=== PATIENT | female | born 1950 | race Caucasian/White ===

== ENCOUNTER 2024-09-26 20:08 | Emergency (ER) | payer MEDICARE, SELFPAY ==
[2024-09-26 20:26] VITALS: BP 174/87; PULSE 84; RESP 17; TEMP 37.1; O2SAT 98; BMI 22.8
[2024-09-26 20:38] VITALS: BP 177/105; PULSE 85; O2SAT 95
--- NOTE | 2024-09-26 20:49 | ED.GENADULT ---
HPI - General Adult General Chief complaint: Dental/Oral Stated complaint: difficulty swallowing, neck pain Time Seen by Provider: 09/26/24 20:49 History of Present Illness HPI narrative: 74-year-old female past medical history of hypertension states that she was just at the dentist earlier today having a filling done, she states that she felt like she might be having an allergic reaction, states that she felt swelling and pain to her neck, this happened after she left the dentist office, states that she gave herself Benadryl states that she has some improved symptoms but did call her dentist and was told that she most likely had subcutaneous emphysema to the fact that the filling was deep according to her dentist, she was not given any directions about what to do next therefore decided come into the ED for further evaluation treatment. at time of evaluation patient well-appearing nontoxic no stridor no voice changes no trismus patient is tolerating secretions not complaining of any other symptoms at this time. Related Data Home Medications Medication Instructions Recorded Confirmed spironolactone 25 mg tablet 25 mg PO DAILY 09/26/24 09/26/24 Allergies Allergy/AdvReac Type Severity Reaction Status Date / Time SULFA Allergy Unknown RASH Uncoded 09/26/24 20:24 Review of Systems Review of Systems Narrative: General: Denies fever, chills, weight loss HEENT: Positive neck swelling/pain, Denies headache, eye drainage, eye irritation, head trauma, sore throat, voice change Cardiovascular: Denies any chest pain, palpitations, tachycardia Respiratory: Denies any shortness of breath, cough, wheeze, stridor GI/: Denies any abdominal pain, nausea, vomiting, diarrhea, bright red blood per rectum, melanotic stools, urinary frequency, urinary retention, dysuria, hematuria MSK: Denies any joint pain, muscle pains, swelling Skin: Denies any rashes, lesions, discoloration Neuro: Denies any headache, lightheadedness, dizziness, fainting, weakness Psych: Denies SI/HI Patient History Surgical History (Updated 09/14/17 @ 06:16 by Conversion Provider) History of spinal fusion Social History Smoking Status: Never smoker Smoking Status: Never smoker Exam Narrative Exam Narrative: General: Cooperative, well-developed, not in acute distress HEENT: Normocephalic, atraumatic, PERRLA, normal sclera, eyelids normal, Palpable crepitus to the right side of the neck, however patient is speaking full sentences protecting airway no voice changes no stridor no trismus uvula is midline Neck: Active full range of motion, atraumatic Chest: Normal to inspection, negative crepitus, no overlying erythema ecchymosis Respiratory: Normal respiratory effort, not in acute respiratory distress, clear to auscultation bilaterally negative cough, wheeze, tachypnea, rhonchi, rales Cardiology: Regular rate rhythm negative gallop, murmur, rubs GI/: No tenderness to palpation, soft, non rigid, normal to inspection, exam deferred MSK: Full active range of motion in all 4 extremities, atraumatic, no tenderness to palpation of any bony prominences Skin: No rashes or lesions noted Neuro: Alert awake oriented x3, moves all 4 extremities spontaneously, cranial nerves intact, able to answer all questions appropriately follows commands appropriately Psych: Cooperative, negative suicidal or homicidal ideations Initial Vital Signs Initial Vital Signs: Vital Signs Temperature 98.8 F 09/26/24 20:26 Pulse Rate 84 09/26/24 20:26 Respiratory Rate 17 09/26/24 20:26 Blood Pressure 174/87 H 09/26/24 20:26 Pulse Oximetry 98 09/26/24 20:26 Oxygen Delivery Method Room Air 09/26/24 20:26 Course Orders Ordered: ED Orders 09/26/24 20:42 BMP [Basic Metabolic Panel] Stat CBC Auto Diff [Complete Blood Count AUTO DIFF] Stat 09/26/24 20:58 CT soft tissue neck w con Stat 09/26/24 20:59 CT head/brain wo con Stat Vital Signs Vital signs: Vital Signs - 8 hr 09/26/24 20:26 09/26/24 20:38 09/26/24 20:38 Temperature 98.8 F Pulse Rate 84 85 Respiratory Rate 17 Blood Pressure 174/87 H 177/105 H Pulse Oximetry 98 95 Oxygen Delivery Method Room Air 09/26/24 21:00 09/26/24 21:00 09/26/24 21:30 Temperature Pulse Rate 70 68 Respiratory Rate Blood Pressure 167/77 H Pulse Oximetry 94 94 Oxygen Delivery Method 09/26/24 21:30 Temperature Pulse Rate Respiratory Rate 18 Blood Pressure 140/81 Pulse Oximetry Oxygen Delivery Method Medical Decision Making Differential Diagnosis Differential Diagnosis: subcutaneous emphysema, allergic reaction, electrolyte abnormality Lab Data 09/26/24 20:42 09/26/24 20:42 Labs: Lab Results 09/26/24 Range/Units 20:42 WBC 8.2 (4.5-11.0) X10^3/uL RBC 4.59 (4.0-5.2) X10^6/uL Hgb 14.9 (12.0-16.0) g/dL Hct 43.6 (36-46) % MCV 95.0 (80-100) fL MCH 32.4 (26-34) PG MCHC 34.1 (30-36) % RDW 13.1 (11.6-14.8) % Plt Count 218 (150-400) X10^3/uL Neut % (Auto) 61.6 (50-75) % Lymph % (Auto) 26.9 (25-40) % [place] % (Auto) 6.3 (3-14) % Eos % (Auto) 4.9 H (2-4) % Baso % (Auto) 0.3 (0-2) % Neut # (Auto) 5000 (8079-6364) /uL Lymph # (Auto) 2200 (9500-5484) /uL [place] # (Auto) 500 (0-900) /uL Eos # (Auto) 400 (0-450) /uL Baso # (Auto) 0 (0-100) /uL Sodium 140 (137-145) mmol/L Potassium 3.8 (3.4-5.1) mmol/L Chloride 104 (98-107) mmol/L Carbon Dioxide 29 (22-32) mmol/L BUN 28 H (7-17) mg/dL Creatinine 0.80 (0.52-1.04) mg/dL Estimated GFR > 60 (>60) mL/min BUN/Creatinine Ratio 35.0 H (6-22) Glucose 95 (70-99) mg/dL Calcium 10.0 (8.4-10.2) mg/dL Imaging Data CT scan - head: Radiologist's Impression: [address] [address] [address] Scan Report Signed Patient: Jayde Pro MR#: [id number] : 1950 Acct:[id number] Age/Sex: 74 / F Date of Service: 09/26/24 Loc: ED Accession Number: [id number] Procedure: CT head/brain wo con Ordering Provider: Surinder Blanco D.O. PROCEDURE: CT HEAD/BRAIN WO CON INDICATIONS: palpable right-sided subcutaneous emphysema s/p dental fill TECHNIQUE: Noncontrast 4.5 mm thick angled axial sections acquired from the foramen magnum to the vertex, with coronal and sagittal reformats. For radiation dose reduction, the following was used: automated exposure control, adjustment of mA and/or kV according to patient size. COMPARISON: None. FINDINGS: Image quality: Diagnostic. CSF spaces: Basal cisterns are patent. No extra-axial fluid collections. The ventricles are symmetric in size and shape. Brain: No intracranial bleeds or mass effect. There is cerebral volume loss, with resultant ventricular and sulcal prominence. There are periventricular and deep white matter chronic small vessel ischemic changes. There is intracranial internal carotid artery atherosclerosis. Skull and face: Calvarium and visualized facial bones appear intact, without suspicious lesions. Subcutaneous emphysema along right frontal parietal calvarium extending to the region of right buccal fat and right parapharyngeal fat. Sinuses: Mild mucosal thickening in bilateral ethmoid sinuses are seen. Bilateral mastoid air cells are well aerated. IMPRESSION: 1. No acute intracranial pathology. 2. Mild bilateral ethmoid sinusitis. 3. Right-sided subcutaneous and deep soft tissue emphysema as described above, please correlate with CT of neck soft tissue findings. CT soft tissue neck: Radiologist's Impression: [place] [address] CT Scan Report Signed Patient: Jayde Pro MR#: [id number] : 1950 Acct:[id number] Age/Sex: 74 / F Date of Service: 09/26/24 Loc: ED Accession Number: [id number] Procedure: CT soft tissue neck w con Ordering Provider: Surinder Blanco D.O. PROCEDURE: CT SOFT TISSUE NECK W CON INDICATIONS: palpable right-sided subcutaneous emphysema s/p dental fill TECHNIQUE: After the administration of intravenous contrast, 3.0 mm axial sections acquired from the sella to the aortic arch. Additional oblique axial 3.0 mm sections acquired through the pharynx. 3 mm thick coronal and sagittal reformats were generated. For radiation dose reduction, the following was used: automated exposure control. COMPARISON: None. FINDINGS: Image quality: Excellent. Lymph nodes: No enlarged lymph nodes seen throughout the neck. Vessels: Visualized vasculature appears patent. Neck spaces: Extensive subcutaneous and deep soft tissue air throughout right neck spaces extending to right supraclavicular region, right superior upper mediastinum and right axilla. Small amount of air is also noted in left lower neck soft tissue. Intramuscular air is noted within right masseter muscle and medial pterygoid muscle and adjacent to right lower molar teeth and right mandible. The vocal cords, false vocal cords, pyriform sinuses, epiglottis, vallecula, and tongue base all appear normal. Extramucosal spaces appear unremarkable. Glands: The parotid and submandibular glands appear normal. Thyroid gland is within normal limits. Miscellaneous: Visualized brain and orbits appear normal. Lung apices appear clear. Subcutaneous emphysema as above. Bones: No suspicious bony lesions. Visualized sinuses and mastoids appear unremarkable. IMPRESSION: 1. Extensive right neck subcutaneous and deep soft tissue emphysema extending to involve right upper anterior chest wall and right axilla as well as left lower neck soft tissue with small amount of intramuscular air in right masseter muscle and right medial pterygoid muscle adjacent to right lower molar teeth and right mandible. Finding likely represent iatrogenic air related to recent dental filling. 2. No soft tissue mass or abscess collection. No neck soft tissue lymphadenopathy by size criteria. Airway is patent. 3. No signs of esophageal perforation. Visualized bilateral lung apices are clear. MDM Narrative Medical decision making narrative: 74-year-old female no pertinent past medical history presenting for swelling to the right side of her neck/face, she states that this happened after she went to the dentist office, she states that she had a deep filling performed earlier today at around 8:00 a.m., she states that she had swelling was worried that she had an allergic reaction so started taking Benadryl, she states that she called her dentist and was told that she most likely had subcutaneous emphysema due to the procedure, she states that the dentist did not tell her anything but after reading about what happened was worried and wanted to be evaluated here in the emergency department. At time of evaluation patient noted with crepitus to the right side of the neck but patient is speaking full sentences protecting airway uvula is midline no voice changes no stridor no trismus. Patient had lab work and imaging performed here in the emergency department, lab work unremarkable, CT scan showing subcutaneous emphysema to the right side of the face without any other acute findings patient was given strict return precautions she is hemodynamically stable not requiring any supplemental oxygen, she states that she is having significant improvement of her symptoms even while being here in the Emergency Department agrees to being discharged home with outpatient follow up. We did discuss possible prophylactic antibiotic treatment however patient states that she does not want to do this 2201: Discussed case with post doctoral researcher Dr. Silverman, states that subcutaneous emphysema can because due to dental filling, he states that as long as patient is stable and CT scans do not show any abnormal findings besides subcutaneous emphysema patient would be safe for discharge home no further surgical intervention needed at this time Discharge Plan Departure Patient Disposition: Home Clinical Impression: Emphysema (subcutaneous) resulting from a procedure, initial encounter Activity Restrictions/Additional Instructions: please follow up with your primary care doctor and PCP Please read the discharge instructions sheet carefully and bring all papers to all doctor follow-up visits, as it may contain information that your doctor may want to see. Disease processes change and evolve, if your symptoms worsen or if you develop any new symptoms that are concerning to you please return for evaluation. Your evaluation today does not show any evidence of any life-threatening/serious illnesses requiring admission to the hospital or surgery. Please follow-up with your doctor for re-evaluation in approximately 1 day. Seek immediate medical attention for any worrisome symptoms. *If you do not have a primary care provider please contact the [facility] Resource line at [phone]. They will ask some questions about your medical history and help get you set up with a doctor in the community. Prescriptions: No Action spironolactone 25 mg Tablet 25 mg PO DAILY Referrals: Meg Wright MD [Primary Care Provider] - Stand Alone Forms: Patient Portal/API/Survey
--- NOTE | 2024-09-26 20:58 | DI.CT.S_ITS ---
PROCEDURE: CT SOFT TISSUE NECK W CON INDICATIONS: palpable right-sided subcutaneous emphysema s/p dental fill TECHNIQUE: After the administration of intravenous contrast, 3.0 mm axial sections acquired from the sella to the aortic arch. Additional oblique axial 3.0 mm sections acquired through the pharynx. 3 mm thick coronal and sagittal reformats were generated. For radiation dose reduction, the following was used: automated exposure control. COMPARISON: None. FINDINGS: Image quality: Excellent. Lymph nodes: No enlarged lymph nodes seen throughout the neck. Vessels: Visualized vasculature appears patent. Neck spaces: Extensive subcutaneous and deep soft tissue air throughout right neck spaces extending to right supraclavicular region, right superior upper mediastinum and right axilla. Small amount of air is also noted in left lower neck soft tissue. Intramuscular air is noted within right masseter muscle and medial pterygoid muscle and adjacent to right lower molar teeth and right mandible. The vocal cords, false vocal cords, pyriform sinuses, epiglottis, vallecula, and tongue base all appear normal. Extramucosal spaces appear unremarkable. Glands: The parotid and submandibular glands appear normal. Thyroid gland is within normal limits. Miscellaneous: Visualized brain and orbits appear normal. Lung apices appear clear. Subcutaneous emphysema as above. Bones: No suspicious bony lesions. Visualized sinuses and mastoids appear unremarkable. IMPRESSION: 1. Extensive right neck subcutaneous and deep soft tissue emphysema extending to involve right upper anterior chest wall and right axilla as well as left lower neck soft tissue with small amount of intramuscular air in right masseter muscle and right medial pterygoid muscle adjacent to right lower molar teeth and right mandible. Finding likely represent iatrogenic air related to recent dental filling. 2. No soft tissue mass or abscess collection. No neck soft tissue lymphadenopathy by size criteria. Airway is patent. 3. No signs of esophageal perforation. Visualized bilateral lung apices are clear. Dictated by: Henry Ely M.D. on 09/26/2024 at 22:36 Approved by: Henry Ely M.D. on 09/26/2024 at 22:43
--- NOTE | 2024-09-26 20:59 | DI.CT.S_ITS ---
PROCEDURE: CT HEAD/BRAIN WO CON INDICATIONS: palpable right-sided subcutaneous emphysema s/p dental fill TECHNIQUE: Noncontrast 4.5 mm thick angled axial sections acquired from the foramen magnum to the vertex, with coronal and sagittal reformats. For radiation dose reduction, the following was used: automated exposure control, adjustment of mA and/or kV according to patient size. COMPARISON: None. FINDINGS: Image quality: Diagnostic. CSF spaces: Basal cisterns are patent. No extra-axial fluid collections. The ventricles are symmetric in size and shape. Brain: No intracranial bleeds or mass effect. There is cerebral volume loss, with resultant ventricular and sulcal prominence. There are periventricular and deep white matter chronic small vessel ischemic changes. There is intracranial internal carotid artery atherosclerosis. Skull and face: Calvarium and visualized facial bones appear intact, without suspicious lesions. Subcutaneous emphysema along right frontal parietal calvarium extending to the region of right buccal fat and right parapharyngeal fat. Sinuses: Mild mucosal thickening in bilateral ethmoid sinuses are seen. Bilateral mastoid air cells are well aerated. IMPRESSION: 1. No acute intracranial pathology. 2. Mild bilateral ethmoid sinusitis. 3. Right-sided subcutaneous and deep soft tissue emphysema as described above, please correlate with CT of neck soft tissue findings. Dictated by: Henry Ely M.D. on 09/26/2024 at 22:10 Approved by: Henry Ely M.D. on 09/26/2024 at 22:15
[2024-09-26 21:00] VITALS: BP 167/77; PULSE 70; O2SAT 94
[2024-09-26 21:25] LABS: Add Manual Diff / Slide Review NO; Basophils Absolute Auto 0 /uL (0-100); Basophils Percent Auto 0.3 % (0-2); Eosinophils Absolute Auto 400 /uL (0-450); Eosinophils Percent Auto 4.9 % (2-4); Hematocrit 43.6 % (36-46); Hemoglobin 14.9 g/dL (12.0-16.0); Lymphocytes Absolute Auto 2200 /uL (1100-4500); Lymphocytes Percent Auto 26.9 % (25-40); Mean Corpuscular HGB Conc 34.1 % (30-36); Mean Corpuscular Hemoglobin 32.4 PG (26-34); Monocytes Absolute Auto 500 /uL (0-900); Monocytes Percent Auto 6.3 % (3-14); Neutrophils Absolute Auto 5000 /uL (1500-7000); Neutrophils Percent Auto 61.6 % (50-75); Platelet Count 218 X10^3/uL (150-400); Red Blood Cell Count 4.59 X10^6/uL (4.0-5.2); Red Cell Distribution Width 13.1 % (11.6-14.8); White Blood Cell Count 8.2 X10^3/uL (4.5-11.0)
[2024-09-26 21:30] VITALS: BP 140/81; PULSE 68; RESP 18; O2SAT 94
[2024-09-26 21:40] LABS: Blood Urea Nitrogen 28 mg/dL (7-17); Carbon Dioxide 29 mmol/L (22-32); Chloride 104 mmol/L (98-107); Estimated Glomerular Filt Rate > 60 mL/min (>60); Glucose 95 mg/dL (70-99); HEMOLYSIS 19 (0-50); Potassium 3.8 mmol/L (3.4-5.1); Sodium 140 mmol/L (137-145)
[2024-09-26 22:00] VITALS: PULSE 78; O2SAT 99
[2024-09-26 22:31] VITALS: PULSE 64; RESP 18; O2SAT 95
== END 2024-09-26 23:07 | disposition home or self-care (01) ==
PROVIDERS: Emergency Provider Student in an Organized Health Care Education/Training Program; PCP Family Medicine
DX: T81.82XA Emphysema (subcutaneous) resulting from a procedure, initial encounter (principal)
CPT/HCPCS: 36415; 70450; 70491; 80048; 85025; 99283; 99284; Q9967